=== PATIENT | female | born 1975 | race Caucasian/White ===

== ENCOUNTER 2019-08-24 08:43 | Outpatient (CLI) | payer BC ==
[2019-08-24 09:00] LABS: BASOPHILS % (AUTO) 0.6 %; EOSINOPHILS # (AUTO) 0.1 10^3/uL (0.0-0.7); EOSINOPHILS % (AUTO) 1.6 %; LYMPHOCYTES # (AUTO) 1.3 10^3/uL (1.5-3.5); LYMPHOCYTES % (AUTO) 19.4 %; MEAN CORPUSCULAR HEMOGLOBIN 30.9 pg (27.0-31.0); MEAN CORPUSCULAR HGB CONC 32.6 g/dL (32.0-36.0); MEAN CORPUSCULAR VOLUME 94.8 fL (81.0-99.0); MEAN PLATELET VOLUME 8.9 fL (7.9-10.8); MONOCYTES # (AUTO) 0.4 10^3/uL (0.0-1.0); MONOCYTES % (AUTO) 6.4 %; NEUTROPHILS # (AUTO) 4.9 10^3/uL (1.5-6.6); NEUTROPHILS % (AUTO) 71.7 %; PLT - PLATELET COUNT 316 10^3/uL (130-450); RED BLOOD COUNT 4.21 10^6/uL (4.20-5.40); RED CELL DISTRIBUTION WIDTH 13.7 % (12.0-15.0); WHITE BLOOD COUNT 6.8 x10^3/uL (4.8-10.8)
[2019-08-24 09:17] LABS: ALBUMIN 4.3 g/dL (3.2-5.5); ALBUMIN/GLOBULIN RATIO 1.5 (1.0-2.2); ALKALINE PHOSPHATASE 103 IU/L (42-121); ALT ALANINE AMINOTRANSFERASE 17 IU/L (10-60); AST ASPARTATE AMINOTRANSFERASE 19 IU/L (10-42); BILIRUBIN,TOTAL 0.6 mg/dL (0.2-1.0); BUN - BLOOD UREA NITROGEN 14 mg/dL (6-20); CALCIUM 8.6 mg/dL (8.5-10.3); CARBON DIOXIDE - CO2 26 mmol/L (21-32); CHLORIDE 106 mmol/L (101-111); CHOL/HDL RATIO 3.3 (<4.4); CHOLESTEROL 208 mg/dL; CREATININE 0.9 mg/dL (0.4-1.0); GLUCOSE 99 mg/dL (70-100); HDL CHOLESTEROL 63 mg/dL; LDL CHOLESTEROL,CALCULATED 137 mg/dL; LDL/HDL RATIO 2.2 (<4.4); SODIUM 138 mmol/L (135-145); TOTAL PROTEIN 7.1 g/dL (6.7-8.2); VLDL CHOLESTEROL 8 mg/dL
== END 2019-08-24 08:44 | disposition home or self-care (01) ==
LOC: LAB 08:43
PROVIDERS: ATTEND Registered Nurse
DX: J45.998 Other asthma (principal); Z71.89 Other specified counseling
CPT/HCPCS: 36415; 80053; 80061; 83721; 84443; 85025

== ENCOUNTER 2021-03-22 08:00 | Outpatient (CLI) | payer BC ==
--- NOTE | 2021-03-23 08:21 | XRAY Report ---
PROCEDURE: Cervical Spine 2 View INDICATIONS: SPRAIN OF LIGAMENTS OF CERVICAL SPINE TECHNIQUE: 3 view(s) of the cervical spine were acquired. COMPARISON: None. FINDINGS: C-SPINE: No acute, displaced fracture or malalignment. The vertebral body heights are maintained. Mil d disc height loss with endplate osteophytosis at C5-6. SOFT TISSUES: No prevertebral soft tissue thickening. IMPRESSION: 1.No acute osseous abnormality of the cervical spine. Reviewed by: Paulino Sorenson MD on 03/23/2021 8:20 AM [facility] [[email or web address]] Approved by: Paulino Sorenson MD on 03/23/2021 8:20 AM [facility] [[email or web address]] Station ID: [id number]
--- NOTE | 2021-03-23 08:22 | XRAY Report ---
PROCEDURE: Thoracic Spine 2 View INDICATIONS: ACUTE THORACIC BACK PAIN TECHNIQUE: 3 views of the thoracic spine were acquired. COMPARISON: None. FINDINGS: THORACIC SPINE: No acute, displaced fracture or retropulsion. The vertebral body heights and interver tebral disc spaces are maintained. SOFT TISSUES: No prevertebral soft tissue thickening. IMPRESSION: 1. No acute osseous abnormality of the thoracic spine. Reviewed by: Paulino Sorenson MD on 03/23/2021 8:20 AM [facility] Approved by: Paulino Sorenson MD on 03/23/2021 8:20 AM [facility] Station ID: [id number]
--- NOTE | 2021-03-23 08:23 | XRAY Report ---
PROCEDURE: Lumbar Spine 2 View INDICATIONS: BACK PAIN, LUMBAR TECHNIQUE: 3 views of the lumbar spine were acquired. COMPARISON: None. FINDINGS: L-SPINE: No acute displaced fracture or malalignment. The vertebral body heights are maintained. The disc space heights are maintained. Mild endplate osteophytosis, most prominent at L4-S1. Facet arthr osis at L5-S1. The sacroiliac joints appear patent. However, slight increase sclerosis is seen about the left SI bernie nt. SOFT TISSUES: No focal abnormality. An intrauterine device is noted. IMPRESSION: 1.No acute osseous abnormality of the lumbar spine. Reviewed by: Paulino Sorenson MD on 03/23/2021 8:22 AM [facility] Approved by: Paulino Sorenson MD on 03/23/2021 8:22 AM [facility] Station ID: [id number]
== END 2021-03-22 23:59 ==
LOC: DI.N 08:00
PROVIDERS: ATTEND Family Medicine
DX: S13.4XXA Sprain of ligaments of cervical spine, initial encounter (principal); M54.6 Pain in thoracic spine; M54.50 Low back pain, unspecified

== ENCOUNTER 2021-07-09 08:09 | Outpatient (CLI) | payer BC ==
[2021-07-09 08:28] LABS: BASOPHILS % (AUTO) 0.5 %; EOSINOPHILS # (AUTO) 0.1 10^3/uL (0.0-0.7); HCT - HEMATOCRIT 39.7 % (37.0-47.0); HGB - HEMOGLOBIN 12.9 g/dL (12.0-16.0); LYMPHOCYTES # (AUTO) 1.4 10^3/uL (1.5-3.5); LYMPHOCYTES % (AUTO) 22.5 %; MEAN CORPUSCULAR HEMOGLOBIN 30.6 pg (27.0-31.0); MEAN CORPUSCULAR HGB CONC 32.5 g/dL (32.0-36.0); MEAN CORPUSCULAR VOLUME 94.1 fL (81.0-99.0); MONOCYTES # (AUTO) 0.4 10^3/uL (0.0-1.0); MONOCYTES % (AUTO) 6.1 %; NEUTROPHILS # (AUTO) 4.2 10^3/uL (1.5-6.6); NEUTROPHILS % (AUTO) 68.7 %; PLT - PLATELET COUNT 325 10^3/uL (130-450); RED BLOOD COUNT 4.22 10^6/uL (4.20-5.40); RED CELL DISTRIBUTION WIDTH 14.6 % (12.0-15.0); WHITE BLOOD COUNT 6.1 x10^3/uL (4.8-10.8)
[2021-07-09 08:58] LABS: ALBUMIN/GLOBULIN RATIO 1.2 (1.0-2.2); ALKALINE PHOSPHATASE 125 IU/L (42-121); ALT ALANINE AMINOTRANSFERASE 22 IU/L (10-60); AST ASPARTATE AMINOTRANSFERASE 22 IU/L (10-42); BILIRUBIN,TOTAL 0.7 mg/dL (0.2-1.0); BUN - BLOOD UREA NITROGEN 16 mg/dL (6-20); CARBON DIOXIDE - CO2 25 mmol/L (21-32); CHLORIDE 103 mmol/L (101-111); CHOL/HDL RATIO 3.1 (<4.4); CHOLESTEROL 224 mg/dL; CREATININE 0.9 mg/dL (0.4-1.0); GFR - MDRD 68 (>89); GLUCOSE 102 mg/dL (70-100); HDL CHOLESTEROL 73 mg/dL; LDL CHOLESTEROL,CALCULATED 142 mg/dL; LDL/HDL RATIO 1.9 (<4.4); POTASSIUM 4.2 mmol/L (3.5-5.0); SODIUM 138 mmol/L (135-145); TOTAL PROTEIN 7.4 g/dL (6.7-8.2); TRIGLYCERIDES 44 mg/dL; VLDL CHOLESTEROL 9 mg/dL
[2021-07-09 09:10] LABS: THYROID STIMULATING HORMONE 1.09 uIU/mL (0.34-5.60)
== END 2021-07-09 08:10 | disposition home or self-care (01) ==
LOC: LAB 08:09
PROVIDERS: ATTEND Registered Nurse
DX: Z13.228 Encounter for screening for other metabolic disorders (principal); Z13.220 Encounter for screening for lipoid disorders; Z13.29 Encounter for screening for other suspected endocrine disorder; Z13.0 Encounter for screening for diseases of the blood and blood-forming organs and certain disorders involving the immune mechanism
CPT/HCPCS: 36415; 80053; 80061; 83721; 84443; 85025

== ENCOUNTER 2021-12-12 09:14 | Outpatient (CLI) | payer BC ==
--- NOTE | 2021-12-12 16:02 | MRI Report ---
PROCEDURE: CERVICAL SPINE WO INDICATIONS: CERVICAL RADICULOPATHY, LUMBAR STRAIN TECHNIQUE: Noncontrast sagittal T1 spin echo and T2 fast spin echo, sagittal STIR, foraminal oblique sagittal T2 fast spin echo, and axial gradient echo or T2 fast spin echo through the cervical spine. COMPARISON: Correlation is made with the accompanying lumbar MRI, 12/12/2021. Correlation is made wi th prior cervical spine plain films, 03/22/2021. FINDINGS: Image quality: Excellent. Alignment and Curvature: There is normal bony alignment. Bone Marrow: Marrow demonstrates normal overall signal. Spinal Cord: Visualized spinal cord has normal size and signal. No cerebellar tonsillar herniation. Paraspinous Soft Tissues: No paravertebral masses. Prevertebral soft tissues are normal in thicknes s. C2-C3: Normal in appearance. C3-C4: The disc height is well-preserved. There is loss of disc signal seen. Mild disc osteophyte complex is seen, with a slight central disc osteophyte protrusion. Mild facet hypertrophy is seen. No neuroforaminal narrowing is seen. Minimal to mild central canal narrowing is seen. C4-C5: Normal in appearance. C5-C6: Moderate loss of disc height and signal are seen. Moderate disc osteophyte complex is seen, which is eccentric to the right side. There is a central/left disc osteophyte protrusion. Mild face t hypertrophy is seen. There is moderate to severe bilateral neuroforaminal narrowing seen, right wo rse than left. Moderate to severe central canal narrowing is seen. There is associated flattening of the ventral spinal cord. C6-C7: No significant abnormality is seen. C7-T1: Normal in appearance. IMPRESSION: Focal C5-C6 degenerative change is seen, with moderate to severe bilateral neuroforaminal narrowing a nd moderate to severe central canal narrowing. There is associated ventral cord flattening at C5-C6. Reviewed by: Liam Baptiste MD on 12/12/2021 3:01 PM [facility] Approved by: Liam Baptiste MD on 12/12/2021 3:01 PM [facility] Station ID: [id number]
--- NOTE | 2021-12-12 16:06 | MRI Report ---
PROCEDURE: LUMBAR SPINE WO INDICATIONS: Lumbar strain. TECHNIQUE: Noncontrast sagittal T1 spin echo and T2 fast echo, sagittal STIR, axial T1 and T2 fast spin echo thr ough the lumbar spine. In cases with scoliosis, additional coronal T2 fast spin echo may be performe d. COMPARISON: Correlation is made with the prior lumbar plain films, 03/22/2021 as well as the complete cervical spine MRI, 12/12/2021. FINDINGS: Image quality: Excellent. Alignment and Curvature: There is normal bony alignment. Bone Marrow: Marrow is of normal overall signal. Scattered foci of T1-weighted hyperintensity and T 2-weighted hyperintensity are seen, without increased STIR signal. These foci are attributed to benig n vertebral body hemangiomas. No acute vertebral body compression fractures. Spinal Cord: Conus medullaris terminates at the L1 level. Visualized cord demonstrates normal signa l and size. Paraspinous Soft Tissues: No paravertebral masses. T12-L1: Normal in appearance. L1-L2: Normal in appearance. L2-L3: Normal in appearance. L3-L4: Mild loss of disc height and disc signal are seen. Mild to moderate disc bulge is seen, wh ich is slightly eccentric to the left. A superimposed central disc protrusion is seen. Note is made of an annular fissure posteriorly. Mild facet hypertrophy is seen. Moderate bilateral neural fora randy narrowing is seen. Mild to moderate central canal narrowing is seen. L4-L5: The disc height is well-preserved. There is loss of disc signal seen. Moderate disc bulge i s seen at this level. A superimposed central disc protrusion is seen. Note is made of an annular fis sure posteriorly. Mild facet hypertrophy is seen. There is moderate bilateral neuroforaminal narro wing seen, right worse than left. Mild to moderate central canal narrowing is seen. L5-S1: The disc height is well-preserved. There is loss of disc signal seen. Mild disc bulge is se en. A superimposed central disc protrusion is seen. Mild facet hypertrophy is seen. No significant neural foraminal or central canal narrowing can be seen. IMPRESSION: Focal lower lumbar spine degenerative changes are seen. Reviewed by: Liam Baptiste MD on 12/12/2021 3:04 PM [facility] Approved by: Liam Baptiste MD on 12/12/2021 3:04 PM [facility] Station ID: [id number]
== END 2021-12-12 09:15 | disposition home or self-care (01) ==
LOC: DI 09:14
PROVIDERS: ATTEND Physical Medicine & Rehabilitation
DX: M47.22 Other spondylosis with radiculopathy, cervical region (principal); M47.23 Other spondylosis with radiculopathy, cervicothoracic region; M48.02 Spinal stenosis, cervical region; M48.061 Spinal stenosis, lumbar region without neurogenic claudication; M48.07 Spinal stenosis, lumbosacral region; M47.27 Other spondylosis with radiculopathy, lumbosacral region; M50.122 Cervical disc disorder at C5-C6 level with radiculopathy; M51.16 Intervertebral disc disorders with radiculopathy, lumbar region; M51.27 Other intervertebral disc displacement, lumbosacral region

== ENCOUNTER 2022-07-19 15:03 | Outpatient (CLI) | payer BC ==
--- NOTE | 2022-07-22 10:19 | Mammography Report ---
BILATERAL DIGITAL SCREENING MAMMOGRAM 3D/2D WITH EXAGGERATED CC: 07/19/2022 CLINICAL: Routine screening. Baseline exam. No prior exams were available for comparison. Both breasts are heterogeneously dense, which may obscure small masses (category c / 51-75% glandular tissue). There is a benign intramammary node in both breasts. No significant masses, calcifications, or other findings are seen in either breast. IMPRESSION: BENIGN There is no mammographic evidence of malignancy. A 1 year screening mammogram is recommended. Based on the Tyrer Cuzick model (a risk assessment model) the patients lifetime risk is 14.1% and he r 10 year risk is 2.6%. According to the ACR, ACS, and NCCN guidelines, an annual breast MRI exam sarahy ng with mammogram is recommended if the patients lifetime risk is 20% or greater. This exam was interpreted at Station ID: [id number]. NOTE: For mammograms, a report in lay terms will be sent to the patient. Approximately 15% of breast malignancies will not be visualized mammographically. In the management of a palpable breast mass, a negative mammogram must not discourage biopsy of a clinically suspicious lesion. Electronically Signed By: Chu marroquin/hilda:07/19/2022 18:23:04 letter sent: No_Letter ACR BI-RADS Category 2: Benign Finding(s) 3342F PARENCHYMAL PATTERN: (D) - The breast(s) demonstrate(s) heterogeneously dense fibroglandular parenchy ma. BI-RADS CATEGORY: (2) - 2 Mammogram [id number] 1 year screening LATERALITY: (B)
== END 2022-07-19 15:04 | disposition home or self-care (01) ==
LOC: DI 15:03
PROVIDERS: ATTEND Nurse Practitioner
DX: Z12.31 Encounter for screening mammogram for malignant neoplasm of breast (principal)

== ENCOUNTER 2022-12-19 08:05 | Outpatient (CLI) | payer BC ==
[2022-12-19 08:15] LABS: BASOPHILS % (AUTO) 0.4 %; EOSINOPHILS # (AUTO) 0.2 10^3/uL (0.0-0.7); EOSINOPHILS % (AUTO) 3.2 %; HCT - HEMATOCRIT 40.5 % (37.0-47.0); HGB - HEMOGLOBIN 12.9 g/dL (12.0-16.0); LYMPHOCYTES # (AUTO) 1.7 10^3/uL (1.5-3.5); MEAN CORPUSCULAR HEMOGLOBIN 29.2 pg (27.0-31.0); MEAN CORPUSCULAR HGB CONC 31.9 g/dL (32.0-36.0); MEAN CORPUSCULAR VOLUME 91.6 fL (81.0-99.0); MEAN PLATELET VOLUME 8.8 fL (7.9-10.8); MONOCYTES # (AUTO) 0.5 10^3/uL (0.0-1.0); MONOCYTES % (AUTO) 6.5 %; NEUTROPHILS # (AUTO) 4.7 10^3/uL (1.5-6.6); NEUTROPHILS % (AUTO) 65.6 %; PLT - PLATELET COUNT 373 10^3/uL (130-450); RED BLOOD COUNT 4.42 10^6/uL (4.20-5.40); RED CELL DISTRIBUTION WIDTH 14.6 % (12.0-15.0); WHITE BLOOD COUNT 7.2 x10^3/uL (4.8-10.8)
[2022-12-19 08:29] LABS: ALBUMIN 4.3 g/dL (3.2-5.5); ALBUMIN/GLOBULIN RATIO 1.3 (1.0-2.2); ALKALINE PHOSPHATASE 153 IU/L (42-121); ALT ALANINE AMINOTRANSFERASE 22 IU/L (10-60); AST ASPARTATE AMINOTRANSFERASE 18 IU/L (10-42); BILIRUBIN,TOTAL 0.3 mg/dL (0.2-1.0); BUN - BLOOD UREA NITROGEN 16 mg/dL (6-20); CARBON DIOXIDE - CO2 27 mmol/L (21-32); CHLORIDE 106 mmol/L (101-111); CHOL/HDL RATIO 3.4 (<4.4); CHOLESTEROL 212 mg/dL; CREATININE 0.8 mg/dL (0.6-1.3); GFR - MDRD 78 (>89); GLUCOSE 104 mg/dL (74-104); HDL CHOLESTEROL 63 mg/dL; LDL CHOLESTEROL,CALCULATED 134 mg/dL; LDL/HDL RATIO 2.1 (<4.4); POTASSIUM 4.3 mmol/L (3.5-4.5); SODIUM 138 mmol/L (135-145); TOTAL PROTEIN 7.6 g/dL (6.4-8.9); TRIGLYCERIDES 73 mg/dL (48-352); VLDL CHOLESTEROL 15 mg/dL
[2022-12-19 08:44] LABS: THYROID STIMULATING HORMONE 1.46 uIU/mL (0.34-5.60)
== END 2022-12-19 08:06 | disposition home or self-care (01) ==
LOC: LAB 08:05
PROVIDERS: ATTEND Registered Nurse
DX: Z79.899 Other long term (current) drug therapy (principal); Z13.220 Encounter for screening for lipoid disorders; Z13.29 Encounter for screening for other suspected endocrine disorder; Z13.228 Encounter for screening for other metabolic disorders; Z13.0 Encounter for screening for diseases of the blood and blood-forming organs and certain disorders involving the immune mechanism
CPT/HCPCS: 36415; 80053; 80061; 83721; 84443; 85025

== ENCOUNTER 2023-01-22 16:47 | Outpatient (CLI) | payer BC ==
--- NOTE | 2023-01-23 08:39 | MRI Report ---
PROCEDURE: CERVICAL SPINE WO INDICATIONS: CERVICAL RADICULOPATHY TECHNIQUE: Noncontrast sagittal T1 spin echo and T2 fast spin echo, sagittal STIR, foraminal oblique sagittal T2 fast spin echo, and axial gradient echo or T2 fast spin echo through the cervical spine. COMPARISON: None. FINDINGS: Image quality: Excellent. Alignment and Curvature: Straightening of the normal cervical lordosis.. Bone Marrow: Degenerative endplate changes at C5-C6. Marrow demonstrates normal overall signal. Spinal Cord: Visualized spinal cord has normal size and signal. No cerebellar tonsillar herniation. Paraspinous Soft Tissues: No paravertebral masses. Prevertebral soft tissues are normal in thicknes s. C2-C3: Normal in appearance. C3-C4: Disc desiccation. Minimal central disc osteophyte complex. Minimal central canal narrowing s imilar to prior. No neuroforaminal stenosis. C4-C5: Normal in appearance. C5-C6: Disc desiccation and height loss. Posterior disc osteophyte complex abutting the ventral cord . Stable moderate to severe central canal stenosis. Facet and uncovertebral arthropathy. Stable moder ate to severe bilateral neuroforaminal stenosis. C6-C7: Mild disc desiccation. No central canal or neuroforaminal stenosis. C7-T1: No central canal or neuroforaminal stenosis. IMPRESSION: Stable focal degenerative changes at C5-C6 with moderate to severe central canal stenosis and moderat e to severe bilateral neuroforaminal stenosis. Reviewed by: Tex Gong MD on 01/23/2023 8:38 AM PST Approved by: Tex Gong MD on 01/23/2023 8:38 AM PST Station ID: [id number]
--- NOTE | 2023-01-23 18:31 | MRI Report ---
PROCEDURE: LUMBAR SPINE WO INDICATIONS: LOW BACK PAIN TECHNIQUE: Noncontrast sagittal T1 spin echo and T2 fast echo, sagittal STIR, axial T1 and T2 fast spin echo thr ough the lumbar spine. In cases with scoliosis, additional coronal T2 fast spin echo may be performe d. COMPARISON: MRI of the lumbar spine dated 12/12/2021. FINDINGS: Image quality: Excellent. Alignment and Curvature: There is normal bony alignment. Bone Marrow: Marrow is of normal overall signal. No acute vertebral body compression fractures. Spinal Cord: Conus medullaris terminates at the L1 level. Visualized cord demonstrates normal signa l and size. Paraspinous Soft Tissues: No paravertebral masses. T12-L1: Normal in appearance. L1-L2: Normal in appearance. L2-L3: Normal in appearance. L3-L4: Mild disc desiccation and height loss. Broad based disc bulge. Moderate facet and ligamentum flavum hypertrophy. No canal stenosis. Mild bilateral foraminal stenosis. There is a small posterior focal high intensity zone noted. Findings are unchanged when compared with the prior study. L4-L5: Mild disc desiccation and height loss. Moderate facet and ligamentum flavum hypertrophy. No canal stenosis. Mild right foraminal narrowing. No left foraminal stenosis. Small posterior focal hig h intensity zone. Findings are unchanged. L5-S1: Mild disc desiccation and height loss. Broad based disc bulge. Mild facet and ligamentum fla vum hypertrophy. No canal stenosis. No foraminal stenosis. Posterior focal high intensity zone is pre sent. Findings are unchanged. IMPRESSION: 1. Overall similar findings when compared with the prior MRI dated 12/12/2021. 2. 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 3. No significant canal stenosis or foraminal narrowing of the lumbar spine. Reviewed by: Cindi Jj MD on 01/23/2023 6:30 PM PST Approved by: Cindi Jj MD on 01/23/2023 6:30 PM PST Station ID: [id number]
== END 2023-01-22 16:48 | disposition home or self-care (01) ==
LOC: DI 16:47
PROVIDERS: ATTEND Physical Medicine & Rehabilitation
DX: M54.17 Radiculopathy, lumbosacral region (principal); M54.12 Radiculopathy, cervical region; S39.012D Strain of muscle, fascia and tendon of lower back, subsequent encounter; S16.1XXD Strain of muscle, fascia and tendon at neck level, subsequent encounter; M51.A0 Intervertebral annulus fibrosus defect, lumbar region, unspecified size; M51.A3 Intervertebral annulus fibrosus defect, lumbosacral region, unspecified size

== ENCOUNTER 2023-02-18 15:43 | Outpatient (CLI) | payer BC ==
--- NOTE | 2023-02-18 16:34 | Sleep Patient Instructions ---
Sleep Center Visit Summary - Patient Visit Information Reason for Visit: Initial consult for evaluation of sleep disordered breathing and other sleep issues. - Patient Instructions Instructions Attached: Sleep Study Home Monitor Additional Instructions: You will be completing a sleep study, either an in-lab polysomnography (PSG) or home sleep study (HST). You will follow-up in the sleep care office after the sleep study is completed to hear the results and talk about therapy, if needed. You will be called by our office staff to schedule this appointment, but you may contact us with any questions. - Clinic Information Contact: [facility] [address] [place] [address] [email or web address] T: [phone]
--- NOTE | 2023-02-18 16:45 | SLEEP CARE CONSULTATION ---
Information from patient questionnaire entered by Lester Hannon. I have reviewed and concur with the information entered by Lester Hannon. This document represents the service I personally performed and the decisions made by me, [place] Garay ARNP. History of Present Illness Service Date and Time: 02/18/2023 1543 Reason for Visit: New patient Chief Complaint: reports: Unrefreshed sleep, Snoring, Observed pauses in breathing Date of Onset: since she can remember, at least 10 years Usual bedtime: 10PM Time it takes to fall asleep: 5-15MIN Snores at night: Yes Observed to quit breathing while asleep: Yes Sleeps alone due to snoring: No Number of times waking at night: 2-3 Reasons for waking at night: reports: Snoring, Pain, Bathroom, Other (UNKNOWN). denies: Choking, Gasping for air Toss, Turn, or Twitch while sleeping: Yes Recalls having dreams: Yes Usually gets out of bed at: 0630 Feels refreshed in the morning: No Morning headache: Yes (almost daily; blocks it out by midmorning) Sleepy or fatigued during the day: Yes (no unintentional naps) Ever fallen asleep while driving: No Takes day naps: No Dreams during day naps: Yes Prior sleep studies: No Additional HPI information: I had the pleasure of seeing MARCOS PAT today regarding the possibility of her having a sleep disorder. Her current complaints are snoring, observed pauses in breathing and unrefreshed sleep. She says 2 years ago she was in an accident that caused bulging discs in her back that causes pain, difficulty getting comfortable. She says she occasionally will hear herself snoring. She has had so me people tell her that she stops breathing at night. She normally sleeps alone. She feels that she wakes up frequent but is normally able to go back to sleep quickly. She does not usually feel refreshed in the morning. She says she has a recessed jaw with overbite and was recommended to have jaw surgery but her insurance would not cover enough of the costs for her to go ahead with it. She says she has anxiety and feels she could not tolerate a CPAP. - Parasomnia Symptoms Ever been unable to move upon waking from sleep: No Walks in sleep: No Talks in sleep: Yes Ever acted out dreams in sleep: No Ever felt weak in the knees when startled or emotional: Yes (nothing out of ordinary) Bothered by creepy, crawly, restless sensations in legs: Yes (takes Requip due to "electric shocks" in legs to calm them nightly) Problems with memory or concentration: Yes (sometimes both) Subjective Initial Cornelia Sleepiness Scale score: 8 (02/18/2023) Past Medical History Past Medical History: reports: Anxiety, Asthma, Other (RESTLESS LIMB SYNDROME) Social History The patient's occupation is a [employer] Patient is Single and lives in . Have you smoked in the past 12 months: No Alcohol use: Yes Alcohol amount and frequency: 1-2 DRINKS WEEK Caffeine use: Yes Caffeine amount and frequency: 1 CUP COFFEE DAILY Family History Family history of sleep disordered breathing: Yes (Grandmother had narcolepsy) Family Hx Sleep Apnea: Mother: Snoring, Father: Snoring, Sibling: Snoring, Grandparent: Snoring Allergies and Home Medications Known drug allergies: No Drug allergies reviewed: Yes Home medication list reviewed: Yes Allergy and home medication list: Home Medications Medication Instructions Recorded Confirmed Last Taken Type Amitriptyline [Elavil] See Rx Instructions .ROUTE .[facility] 02/18/23 02/18/23 Unknown History Ascorbic Acid/Collagen Hydr See Rx Instructions .ROUTE .[facility] 02/18/23 02/18/23 Unknown History [Collagen Skin Renewal Tab] Magnesium See Rx Instructions .ROUTE .[facility] 02/18/23 02/18/23 Unknown History Montelukast [Singulair] See Rx Instructions .ROUTE .[facility] 02/18/23 02/18/23 Unknown History Multivitamin See Rx Instructions .ROUTE .[facility] 02/18/23 02/18/23 Unknown History Naltrexone HCl See Rx Instructions .ROUTE .[facility] 02/18/23 02/18/23 Unknown History Potassium Citrate [Potassium] See Rx Instructions .ROUTE .[facility] 02/18/23 02/18/23 Unknown History buPROPion [Wellbutrin Sr] See Rx Instructions .ROUTE .[facility] 02/18/23 02/18/23 Unknown History flaxseed oiL [Flaxseed Oil] See Rx Instructions .ROUTE .[facility] 02/18/23 02/18/23 Unknown History rOPINIRole [Requip] See Rx Instructions .ROUTE .[facility] 02/18/23 02/18/23 Unknown History Review of Systems Weight gain over past 5 years: 40 Cardiovascular: denies: high blood pressure Respiratory: reports: other (ASTHMATIC WHEN HAVING SINUS INFECTION) Gastrointestinal: denies: heartburn Neurological: reports: headaches Psychiatric: reports: anxiety Ear/Nose/Throat: reports: tonsillectomy (when 1989) Endocrine: denies: thyroid disease Musculoskeletal: reports: joint pain, neck pain, back pain, muscle pain or cramping, mobility problems Immunologic: reports: sneezing, allergies to food or environment Physical Exam Vital signs obtained and entered by: LESTER Torres MA Blood Pressure: 121/85 (LEFT ARM) Cuff size: regular Heart Rate: 82 O2 Saturation: 98 Height: 5 ft 9.25 in Weight: 230 lb 6.4 oz Body Mass Index: 33.7 BMI Classification: Obese Neck circumference: 15.25 Mouth and throat: narrow oropharynx Soft palate: long Hard palate: normal Uvula: normal Uvula visualization: 25% Mallampati Class III Tongue: normal in size Tonsils: absent bilaterally Neck: normal w/o lymphadenopathy or thyromegaly Heart: regular rate and rhythm, murmur Lungs: clear bilaterally Impression and Plan 1. Suspected Obstructive Sleep Apnea-Hypopnea Syndrome, as suggested by a history of irregular snoring, observed cessation of breath while asleep, morning headache, frequent awakening during the night, unrefreshed sleep and cognitive impairment. Narrow oropharynx and obesity are common predisposing factors for obstructive sleep apnea-hypopnea syndrome. I recommend proceeding to polysomnography to confirm the diagnosis and to assess severity. If the patient has significant sleep disordered breathing, a manual CPAP titration study will also be performed to find the optimal treatment pressure. I informed the patient of what the sleep studies involve and after some discussion, obtained agreement to proceed. The pathophysiology of obstructive sleep apnea-hypopnea syndrome was discussed with the patient and health risks of cardiovascular and cerebrovascular disease if not treated. Risks of drowsy driving discussed in detail and patient advised to avoid long distance driving and to felt puller at the first sign of drowsiness. Patient agreed to plan. * Schedule polysomnography. * Avoid long distance driving or driving when feeling sleepy. * Avoid alcohol, sedative and muscle relaxant around bedtime. * Attempt to lose weight. * Review instructions provided by trained office staff on how to prepare for the sleep study. * Return for follow-up after sleep study completed. Counseling Topics: Weight loss health impact Plan: PSG/HST Visit Type: In Office Time Spent with Patient (minutes): 39 Provider Statement: I spent 100% of the Face to Face Visit with the patient with greater than 50% spent counseling the patient and coordination of care.
[2023-02-18 16:53] VITALS: BP 121/85; O2SAT 98
== END 2023-02-18 15:44 | disposition home or self-care (01) ==
LOC: SC 15:43
PROVIDERS: ATTEND Nurse Practitioner Family
DX: G47.8 Other sleep disorders (principal); R51.9 Headache, unspecified; R06.83 Snoring; G25.81 Restless legs syndrome; R06.81 Apnea, not elsewhere classified; R41.89 Other symptoms and signs involving cognitive functions and awareness; E66.9 Obesity, unspecified; Z68.33 Body mass index [BMI] 33.0-33.9, adult
CPT/HCPCS: 99203; 99212

== ENCOUNTER 2023-03-19 12:39 | Outpatient (CLI) | payer BC | END 2023-03-19 12:40 | disposition home or self-care (01) | LOC: SC 12:39 | PROVIDERS: ATTEND Nurse Practitioner Family | DX: G47.33 Obstructive sleep apnea (adult) (pediatric) (principal); R09.02 Hypoxemia; E66.9 Obesity, unspecified; Z68.34 Body mass index [BMI] 34.0-34.9, adult | CPT/HCPCS: 95806 ==

== ENCOUNTER 2023-04-01 14:49 | Outpatient (CLI) | payer BC ==
--- NOTE | 2023-04-01 15:12 | Sleep Patient Instructions ---
Sleep Center Visit Summary - Patient Visit Information Reason for Visit: Follow up sleep study - Patient Instructions Additional Instructions: You are to start Positional therapy to control your sleep apnea. You may obtain positional belts or other commercial devices online. You may also use pillows to position yourself on your side or a T shirt with balls sewn into the back to help keep you on your side to sleep. We would like to follow up with you in a month or so to check effectiveness of therapy. Please call office to schedule a follow up appointment in the sleep care office in 1-2 months. - Clinic Information Contact: [facility] [address] [place] [address] [email or web address] T: [phone]
--- NOTE | 2023-04-01 15:17 | SLEEP CARE CONSULTATION ---
Information from patient questionnaire entered by Sharmaine Hannon. I have reviewed and concur with the information entered by Sharmaine Hannon. This document represents the service I personally performed and the decisions made by , Florida Garay ARNP. History of Present Illness Service Date and Time: 04/01/2023 1449 Initial [place] Sleepiness Scale score: 8 (02/18/2023) Current [place] Sleepiness Scale score: 9 Additional HPI information: MARCOS PAT returns for follow up and results of the recently performed home sleep study. The sleep study showed moderate obstructive sleep apnea with an average AHI of 15.2 and suraj oxygen saturation of 79%. I explained the pathophysiology behind obstructive sleep apnea. We then spent quite a bit of time discussing different treatment options. For mild obstructive sleep apnea, surgery and oral appliance are alternatives to nasal CPAP therapy but in moderate or severe cases, nasal CPAP is the most effective and reliable treatment. Because apnea is primarily in supine position, then positional management therapy could be effective. Methods discussed such as positioning with pillows, using a T-shirt with tennis balls in the back or commercial products that have a pillow format on back to prevent supine sleep. Patient counseled not drink alcohol less than 4 hours before bedtime as it can increase snoring and apnea. Patient was cautioned about risks of drowsy driving until sleepiness symptoms resolve. Patient denies drowsy driving. Sleep Study - Results Type of Sleep Study: Home sleep study (COMPLETED 03/19/23) Prior sleep studies: No Polysomnography/Home Sleep Study results: Physician Impression: The quality of the study is good. The length of the study is adequate (> 240 minutes). Please also see the tabulated and graphic data. 1. Obstructive Sleep Apnea-Hypopnea (ICD-10 G47.33), moderate, with an AHI of 15.2/hr and suraj SaO2 of 79%. During the study, the patient had 71 apneas (71 obstructive, 0 central, 0 mixed) and 37 hypopneas. The longest episode lasted 80.0 seconds. The respiratory events occurred almost exclusively during supine sleep (supine AHI was 25.4 and non-supine, 1.01). 2. Hypoxemia (ICD-10 R09.02), moderate, with the lowest oxygen saturation of 79 % and 7.3 minutes with SaO2 under 90%. Baseline oxygen saturation was normal (Average oxygen satu ration was 93%). Allergies and Home Medications Known drug allergies: No Drug allergies reviewed: Yes Home medication list reviewed: Yes (no changes) Allergy and home medication list: Allergies No Known Drug Allergies Allergy (Verified 03/28/23 11:31) Review of Systems Review of systems same as previous: Yes (no changes) Physical Exam Vital signs obtained and entered by: Florida Celaya NP Blood Pressure: 121/76 Cuff size: wrist (right) Heart Rate: 94 O2 Saturation: 98 Height: 5 ft 9.25 in Weight: 243 lb 6.4 oz Body Mass Index: 35.6 BMI Classification: Obese Impression and Plan 1. Obstructive Sleep Apnea-Hypopnea Syndrome, moderate, with lowest oxygen saturation of 79%. Obviously this is the cause of the patients symptoms of unrefreshed sleep, and excessive daytime sleepiness. Positive pressure therapy could benefit anxiety and RLS, but patient would like to avoid CPAP if possible. Since patients apnea is primarily in supine position, patient advised to try positional therapy and agreed with plan. She was also advised to maintain a healthy weight as this will reduce snoring and apnea. An oral appliance can also be used for snoring but often is not covered by insurance. Follow up is scheduled for one month to check effectiveness and if further evaluation indicated such a repeat study in supine position only to see if additional treatment indicated. 2. Hypoxemia, moderate, with a suraj oxygen saturation of 79% and 7.3 minutes spent under 90%. The baseline oxygen saturation was normal with an average oxygen saturation of 93%. * Positional therapy * She is encouraged to try to lose weight, BMI 35.4 * Avoid alcohol consumption near bedtime. * Avoid supine sleep * The patient is again cautioned about driving until sleepiness completely resolves. * Return in 1-2 month after CPAP obtained. I will assess response to therapy at that time. Counseling Topics: Sleeping position, Weight control Follow up with Sleep Care in: 1-2 months (Positional therapy) Visit Type: In Office Time Spent with Patient (minutes): 21 Provider Statement: I spent 100% of the Face to Face Visit with the patient with greater than 50% spent counseling the patient and coordination of care.
[2023-04-01 15:22] VITALS: BP 121/76; O2SAT 98
== END 2023-04-01 14:50 | disposition home or self-care (01) ==
LOC: SC 14:49
PROVIDERS: ATTEND Nurse Practitioner Family
DX: G47.33 Obstructive sleep apnea (adult) (pediatric) (principal); R09.02 Hypoxemia; E66.9 Obesity, unspecified; Z68.35 Body mass index [BMI] 35.0-35.9, adult
CPT/HCPCS: 99212; 99213

== ENCOUNTER 2023-05-30 16:25 | Outpatient (CLI) | payer BC ==
--- NOTE | 2023-05-30 16:47 | Sleep Patient Instructions ---
Sleep Center Visit Summary - Patient Visit Information Reason for Visit: 2-month positional therapy follow-up - Patient Instructions Additional Instructions: You were here for follow up of Positional therapy. You will be continued on Positional therapy. You should follow up with sleep care in 6 months. You may contact us sooner for any questions or concerns. - Clinic Information Contact: [facility] [address] [place] [address] [email or web address] T: [phone]
--- NOTE | 2023-05-30 16:58 | SLEEP CARE CONSULTATION ---
Information from patient questionnaire entered by Lester Hannon. I have reviewed and concur with the information entered by Lester Hannon. This document represents the service I personally performed and the decisions made by me, Florida Garay ARNP. History of Present Illness Service Date and Time: 05/30/2023 1625 Previous diagnosis: Moderate, Obstructive Sleep Apnea-Hypopnea Syndrome AHI: 15.2 (02/2023) Reason for follow up: other (2 MONTH F/U POSITIONAL) Prior sleep studies: No Type of Sleep Study: Home sleep study (03/19/23) HPI additional information: MARCOS PAT was diagnosed to have moderate, AHI 15.2, obstructive sleep apnea-hypopnea syndrome and returned today for Positional therapy two month follow-up. Sleep Study - Results Type of Sleep Study: Home sleep study Prior sleep studies: No CPAP Compliance Data Compliance data discussion: She is using pillows to help to keep her on her sides. She is still finding herself on her back after moving pillows at night. Subjective On therapy, patient: reports: sleeping better, being more awake and alert during the day, more rested overall. denies: drowsiness while driving Initial [place] Sleepiness Scale score: 8 (02/18/2023) Current [place] Sleepiness Scale score: 7 (05/30/23) Allergies and Home Medications Known drug allergies: No Drug allergies reviewed: Yes Home medication list reviewed: Yes (no changes) Allergy and home medication list: Allergies No Known Drug Allergies Allergy (Verified 05/29/23 13:14) Review of Systems Review of systems same as previous: Yes (NO CHANGE) Physical Exam Vital signs obtained and entered by: LESTER Torres MA Blood Pressure: 132/85 (LEFT ARM) Cuff size: regular Heart Rate: 75 O2 Saturation: 98 Height: 5 ft 9.25 in Weight: 240 lb 9.6 oz Weight change since last visit: 3 lb loss Body Mass Index: 35.2 BMI Classification: Obese Impression and Plan 1. Obstructive Sleep Apnea-Hypopnea Syndrome, moderate. Using positional therapy, the patient has notice a mild improvement of sleep and is having more energy throughout the day. She is consciously trying to keep on her sides but will occasionally find that she has moved the pillows and is on her back. She will reposition back to her sides. I discussed with her trying a positional belt that she cannot just move off as easily when sleeping. She was shown some examples that we had in the office to obtain on her own. She is looking into getting jaw surgery to correct her under-bite and reduce sleep apnea. Her primary doctor has put in a referral for her to a local oral surgeon. She will continue with the positional therapy while she investigates if her insurance will cover the procedure. She may be able to have an oral appliance made for sleep apnea if unable to get surgery due to insurance limitations. I will have her follow up in 6 months or as soon as she knows what she will need to do movi ng forward with treatment. Patient's apnea severity and rationale for treatment to reduce apnea, improve sleep quality and reduce cardiovascular and cerebrovascular events was reviewed. 2. Obesity, unspecified. Currently patients BMI is 35.2. She has lost weight. Obesity increases the risk of apnea, CPAP pressure requirements and overall health risks especially cardiovascular and diabetes. Thus patient is advised to lose weight. -Continue positional therapy -Attempt to lose weight -Call this office if any problems -Return for follow up in 3 months, or sooner if concerns arise Counseling Topics: Sleeping position, Weight loss health impact Follow up with Sleep Care in: 6 months Visit Type: In Office Time Spent with Patient (minutes): 23 Provider Statement: I spent 100% of the Face to Face Visit with the patient with greater than 50% spent counseling the patient and coordination of care.
[2023-05-30 17:00] VITALS: BP 132/85; O2SAT 98
== END 2023-05-30 16:26 | disposition home or self-care (01) ==
LOC: SC 16:25
PROVIDERS: ATTEND Nurse Practitioner Family
DX: G47.33 Obstructive sleep apnea (adult) (pediatric) (principal); E66.9 Obesity, unspecified; Z68.35 Body mass index [BMI] 35.0-35.9, adult
CPT/HCPCS: 99212; 99213